=== PATIENT | female | born 1975 ===

== ENCOUNTER 2017-01-24 02:54 | Emergency (ER) | payer SELFPAY ==
[2017-01-24 03:07] VITALS: BP 138/83; PULSE 107; RESP 16; TEMP 99.9; O2SAT 97
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
== END 2017-01-24 03:48 | disposition home or self-care (01) ==
LOC: H.ER 02:54
DX: M79.602 Pain in left arm (principal); W22.8XXA Striking against or struck by other objects, initial encounter; Y92.89 Other specified places as the place of occurrence of the external cause